=== PATIENT | male | born 1975 | race Caucasian/White ===

== ENCOUNTER 2023-05-15 18:28 | Emergency (ER) | payer OTHER, SELFPAY ==
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
[2023-05-15 19:14] VITALS: BP 115/83; PULSE 84; O2SAT 97
[2023-05-15 19:16] VITALS: BP 115/83; PULSE 81; RESP 18; TEMP 36.7; O2SAT 98
[2023-05-15 19:21] VITALS: BP 115/83; PULSE 81; RESP 18; TEMP 36.7; O2SAT 98; BMI 23.7
--- NOTE | 2023-05-15 20:16 | ECG_ITS ---
Test Reason : FALL Blood Pressure : / mmHG Vent. Rate : 076 BPM Atrial Rate : 076 BPM P-R Int : 146 ms QRS Dur : 090 ms QT Int : 356 ms P-R-T Axes : 056 060 065 degrees QTc Int : 400 ms Normal sinus rhythm Normal ECG No previous ECGs available Referred By: Bentley Miller Electronically Signed By:Jonny Van
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
[2023-05-15 20:46] LABS: MANUAL DIFF FLAG NO
[2023-05-15 21:00] LABS: Alanine Aminotransferase 14 U/L (0-40); Albumin Level 4.1 g/dL (3.5-5.0); Alkaline Phosphatase 77 U/L (39-117); Anion Gap 10 (12-20); Aspartate Amino Transferase 18 U/L (5-37); Bilirubin Total 0.3 mg/dL (0.0-1.0); Blood Urea Nitrogen 16 mg/dL (9-16); Calcium 9.3 mg/dL (8.4-10.2); Carbon Dioxide 28 mmol/L (22-29); Chloride 106 mmol/L (96-108); Creatinine Clr Calc Pharmacy 114.9; Estimated Glomerular Filt Rate > 60; Glucose Random 108 mg/dL (60-115); Lipase 10 U/L (8-78); Sodium 140 mmol/L (135-145); Total Protein 7.6 g/dL (6.5-8.0)
[2023-05-15 21:03] LABS: Partial Thromboplastin Time 30.4 SEC (26.0-36.8)
[2023-05-15 21:08] LABS: Troponin-I High Sensitivity < 2.7 ng/L (<3.5-35.0)
[2023-05-15] MEDS: Lidocaine HCl 1 % MPF 5 ML VIAL INFILTRATI (21:08)
[2023-05-15] MEDS: Diphth,Pertus(ACell),Tet Adult 0.5 ML SYRINGE IM (21:08)
[2023-05-15 21:14] LABS: Basophils Absolute Auto 0.1 X10*3/uL (0.0-0.2); Basophils Percent Auto 0.5 % (0-2); Eosinophils Absolute Auto 0.1 X10*3/uL (0.0-0.4); Eosinophils Percent Auto 0.8 % (0-4); Hematocrit 46.5 % (42.0-52.0); Hemoglobin 15.6 g/dl (14.0-18.0); Imm Gran Abs Auto 0.04 X10*3/uL (0.00-0.03); Imm Gran Pct Auto 0.4 % (0.0-0.4); Lymphocytes Absolute Auto 2.3 X10*3/uL (1.2-4.9); Lymphocytes Percent Auto 22.6 % (20-40); Mean Corpuscular HGB Conc 33.5 g/dl (31.0-36.0); Mean Corpuscular Hemoglobin 30.6 pg (27.0-33.0); Mean Corpuscular Volume 91.2 fL (80.0-98.0); Mean Platelet Volume 10.5 fL (9.4-12.4); Monocytes Percent Auto 9.7 % (2-11); NRBC Pct Auto 0.2 /100WBC (0.0-0.2); Neutrophils Absolute Auto 6.6 x10*3/uL (2.0-8.3); Platelet Count 341 X10*3/uL (160-400); Red Cell Distribution Width 14.6 % (11.0-16.0)
[2023-05-15 21:46] VITALS: BP 115/83; PULSE 76; RESP 18; TEMP 36.6; O2SAT 98
== END 2023-05-15 21:48 | disposition home or self-care (01) ==
PROVIDERS: Emergency Provider Emergency Medicine Emergency Medical Services
DX: S01.01XA Laceration without foreign body of scalp, initial encounter (principal); Z87.820 Personal history of traumatic brain injury; W07.XXXA Fall from chair, initial encounter; Y93.9 Activity, unspecified; Y92.59 Other trade areas as the place of occurrence of the external cause; Y99.9 Unspecified external cause status
CPT/HCPCS: 12001; 36415; 70450; 72125; 80053; 83690; 84484; 85025; 85730; 90471; 90715; 93005; 99283; 99284

== ENCOUNTER → 2023-05-15 20:16 | Outpatient (BNV) | payer OTHER, SELFPAY | PROVIDERS: Emergency Provider Emergency Medicine Emergency Medical Services; Visit Provider Internal Medicine Cardiovascular Disease | DX: R94.31 Abnormal electrocardiogram [ECG] [EKG] (principal) | CPT/HCPCS: 93010 ==

== ENCOUNTER 2023-05-22 13:40 | Emergency (ER) | payer OTHER, SELFPAY ==
[2023-05-22 13:57] VITALS: BP 136/92; PULSE 92; RESP 20; TEMP 36.7; O2SAT 96; BMI 23.7
--- NOTE | 2023-05-22 13:57 | ED.GENADULT ---
HPI - General Adult General Chief complaint: General Medical Stated complaint: Needs eb removed Time Seen by Provider: 05/22/23 14:01 Source: patient Mode of arrival: ambulatory Limitations: no limitations History of Present Illness HPI narrative: Patient is a 47-year-old male presenting to the ED for removal of eb placed to scalp on 05/14 in this ED. Denies any issues or concerns. complaint: staple removal Location: head Associated symptoms: denies other symptoms Treatments prior to arrival: none Related Data Allergies Allergy/AdvReac Type Severity Reaction Status Date / Time diphenhydramine Allergy Hives Verified 05/15/23 19:23 [From Benadryl] Review of Systems Review of Systems: As per HPI Yes all other systems are reviewed and are negative Constitutional: Constitutional: Reports as per HPI COUNTS INCLUDE 234 BEDS AT THE [facility] Social History Social History Advance Directives: No Advance Directives Information Provided: No Physical Exam ED Vital Signs: Vital Signs - 24 hr 05/22/23 13:57 Temperature 98.0 F Pulse Rate 92 Respiratory Rate 20 Blood Pressure 136/92 H Pulse Oximetry 96 Oxygen Delivery Method Room Air BMI result Body Mass Index 23.7 Vital signs have been reviewed and appear to be correct. Blood pressure normal. Heart rate normal. Respiratory rate normal. Temperature normal. Oxygen saturation normal. Const General: cooperative, healthy appearing and no acute distress Orientation/consciousness: oriented to person, oriented to place, oriented to time and patient oriented x3 Limitations: no limitations HENMT Head: Yes normocephalic and Yes atraumatic Head images: 1. 5 eb to scalp without surrounding erythema, warmth, drainage Ears: external ears normal General nose exam: Normal external nose present Face and sinus: Yes face symmetric Mouth: oropharynx normal and moist mucous membranes Throat: Yes uvula midline Eyes Pupils: Equal, round and reactive pupils present Neck Neck: Yes normal visual inspection and Yes supple Resp Effort & Inspection: normal respiratory effort and able to speak in complete sentences Auscultation: clear to auscultation bilaterally Cardio Rate: regular rate Rhythm: regular rhythm Heart sounds: S1 normal heart sound present and S2 normal heart sound present Skin General skin exam: elasticity normal and turgor normal Neuro General: oriented to person, oriented to place, oriented to time, patient oriented x3, moves all extremities, no focal motor deficits and CN's II-XI intact bilaterally Cranial nerves: Yes Equal, round and reactive pupils present Cognition (Neuro): normal cognition Extrem General: Yes full ROM, Yes no pedal edema and Yes no calf tenderness Psych Mental Status: mental status grossly normal Affect: normal affect Thought process: Normal thought process present Medical Decision Making Medical Decision Making [facility] Narrative: Patient is a 47-year-old male presenting to the ED for removal of eb placed to scalp on 05/14 in this ED. On exam patient is awake, A+Ox3, VS WNL, afebrile, normal neurological exam without focal deficits, physical exam findings as above. Given reported symptoms and physical exam findings, initial differential includes staple removal, cellulitis. Wound appears to be well healed, #5 eb removed without difficulty with success. Advised patient to continue to monitor the area daily for signs of infection and return if this occurs. Advised him to follow-up with primary care provider. Patient verbalized understanding of and agreement with plan. Differential Diagnosis Differential Diagnoses: The differential diagnosis associated with the presentation includes As per MDM. External Record Review External record reviewed: Inpatient record, Office record and Outpatient record Discharge Plan Discharge Clinical Impression: Encounter for removal of eb Patient Disposition: Home, Self-Care Additional Instructions: You were seen in the emergency department today for staple removed. You had 5 eb removed today. You should continue to check the area daily for signs of infection and return if this occurs. Please follow up with your primary care provider.
[2023-05-22 14:13] VITALS: BP 136/92; PULSE 92; RESP 20; TEMP 36.6; O2SAT 96
== END 2023-05-22 14:14 | disposition home or self-care (01) ==
PROVIDERS: Emergency Provider Emergency Medicine; PCP Internal Medicine
DX: Z48.02 Encounter for removal of sutures (principal)
CPT/HCPCS: 99282